=== PATIENT | female | born 1975 | race African-American/Black ===

== ENCOUNTER 2017-02-20 15:15 | Emergency (ER) | payer BC ==
--- NOTE | ~2017-02-20 | EKG ---
PATIENT: IRENE VÁZQUEZ UNIT #: [id number] Ventricular Rate: 86 BPM Atrial Rate: 86 BPM P-R Interval: 144 ms QRS Duration: 76 ms Q-T Interval: 398 ms QTC Calculation(Bezet): 476 ms P Grifton: 45 degrees Calculated R Grifton: 4 degrees Calculated T Grifton: 24 degrees Diagnosis Line: Normal sinus rhythm Diagnosis Line: Nonspecific T wave abnormality Diagnosis Line: Abnormal ECG Diagnosis Line: No previous ECGs available Diagnosis Line: Confirmed by PAPI CARL MD ([id number]) on Diagnosis Line: 02/20/2017 10:56:54 PM INTERPRETING MD: ALFREDO
[~2017-02-20 15:15] MED LIST: FIORINAL CAPSUL1 CAP PO; IBUPROFEN800 MG PO; KETOPROFEN PO
[2017-02-20 16:30] LABS: URINE SOURCE CLEAN CATCH
[2017-02-20 16:36] LABS: BASOPHIL# 0.1 X10e3 (0-0.3); BASOPHIL% 0.6 % (0-2.5); EOSINOPHIL# 0.2 X10e3 (0-0.7); EOSINOPHIL% 2.6 % (0.0-7.0); HEMATOCRIT 35.1 % (35.0-45.0); HEMOGLOBIN 10.8 gm/dL (12.0-16.0); LYMPHOCYTE% 32.9 % (17.0-45.0); MEAN CELL VOLUME 76.4 FL (83-96); MEAN CORPUSCULAR HEMOGLOBIN 23.6 PG (28-34); MEAN CORPUSCULAR HGB CONC 30.9 g/dL (30-36); MEAN PLATELET VOLUME 8.6 FL (6.5-11.5); MONOCYTE# 0.6 X10e3 (0-1.0); MONOCYTE% 6.9 % (3.0-12.0); NEUTROPHIL# 5.1 X10e3 (1.5-7.1); PLATELET COUNT 351 X10e3 (140-420); RED BLOOD COUNT 4.59 X10e (3.90-5.30); RED CELL DISTRIBUTION WIDTH 15.4 % (11.0-15.5); URINE APPEARANCE CLEAR; URINE BILIRUBIN NEG (NEG); URINE BLOOD NEG (NEG); URINE COLOR YELLOW; URINE GLUCOSE NEG (NEG); URINE KETONE NEG (NEG); URINE LEUKOCYTE ESTERASE NEG (NEG); URINE NITRATE NEG (NEG); URINE PROTEIN NEG (NEG); URINE SPECIFIC GRAVITY 1.019 (1.003-1.035)
[2017-02-20 16:39] LABS: DIFF IND NO
[2017-02-20 16:41] LABS: CULTURE INDICATED? NO
[2017-02-20 16:56] LABS: ALBUMIN SERUM 3.8 g/dL (3.5-5.0); ALKALINE PHOSPHATASE 59 U/L (32-92); ALT (SGPT) 15 U/L (10-40); AST (SGOT) 17 U/L (10-42); BILIRUBIN,TOTAL 0.7 mg/dL (0.2-2.0); BLOOD UREA NITROGEN 11 mg/dL (9-23); BUN/CREATININE RATIO 12.22; CARBON DIOXIDE 24 mmol/L (22-31); CHLORIDE 105 mmol/L (100-111); CREATININE SERUM 0.9 mg/dL (0.6-1.4); GLOM FILT RATE Estimated 90.8 mL/min (>60); GLUCOSE FASTING 87 mg/dL (70-110); LIPASE 21 U/L (22-51); PROTEIN TOTAL SERUM 7.7 g/dL (6.0-8.3); SODIUM 136 mmol/L (135-145)
[2017-02-20 16:57] LABS: BILIRUBIN, DIRECT <0.1 mg/dL (0.0-0.2); BILIRUBIN,INDIRECT 0.6 mg/dL (0.0-0.9)
== END 2017-02-20 19:14 | disposition home or self-care (01) ==
LOC: CED 15:15
DX: R10.9 Unspecified abdominal pain (principal); R30.0 Dysuria; J45.909 Unspecified asthma, uncomplicated; F17.200 Nicotine dependence, unspecified, uncomplicated; Z88.5 Allergy status to narcotic agent; Z91.040 Latex allergy status; Z91.030 Bee allergy status; Z79.899 Other long term (current) drug therapy
CPT/HCPCS: 36415; 80048; 80076; 81003; 83690; 84703; 85025; 93005; 99284

== ENCOUNTER 2017-04-05 06:59 | Emergency (ER) | payer BC ==
--- NOTE | ~2017-04-05 | US61 ---
[facility] A Service of [facility] & [facility] RADIOLOGY TEXT RESULTS PATIENT: IRENE VÁZQUEZ LOCATION: [facility] : [birth year] UNIT #: [id number] AGE: [address]: Micah Kebede MD SEX: F ORDER DR: [id number] [facility] [address] [place], [place] [address] [id number] E MR#: [id number] Acc #: [id number] NAME: IRENE VÁZQUEZ : 1975 SEX: F STUDY DATE/TIME: 04/05/2017 8:29 UNIT: [facility] ROOM: STUDY DESCRIPTION: US /Mat <14Wk / Attending Physician: Micah Kebede M.D. Ordering Physician: Micah Kebede M.D. Primary Care Physician: Taniya Luna M.D. MEDICAL IMAGING REPORT This report is preliminary unless electronic signature is present EXAM sonogram. HISTORY 41-year-old female with apparent positive test and pelvic pain since yesterday. Vaginal bleeding starting this morning. LMP 02/09/2017. FINDINGS Real-time examination was performed utilizing both transabdominal and endovaginal scanning. Patient terminated the procedure before it was complete due to pain. Examination demonstrates an enlarged uterus measuring 10.4 x 5.3 x 6.2 cm. Multiple uterine mass lesions are identified compatible with fibroadenomas, the largest seen exophytically off the posterior myometrium or posterior uterus measuring 3 x 4.8 x 3.9 cm. Endometrium unremarkable. No discernible gestational sac. The left ovary appeared normal measuring 2.9 x 1.9 x 2.8 cm. This contains a small cyst measuring about 1.4 cm. The right ovary was not visualized as the patient terminated the procedure early. No free fluid or adnexal masses identified. IMPRESSION 1. Limited pelvic sonogram as the patient terminated the procedure early due to pain. 2. No discernible IUP. Based on the patient's reported low quantitative HCG, differential would include early IUP versus ectopic versus failed IUP. Correlation with the patient's serial quantitative HCGs may be of benefit. Clearly no free fluid or adnexal mass is identified. 3. Enlarged uterus with a 4.8 cm exophytic lesion off the posterior aspect of the uterus compatible with a moderate sized fibroid. Dictated by... [facility] A Service of [facility] RADIOLOGY TEXT RESULTS PATIENT: IRENE VÁZQUEZ [id number] : [birth year] UNIT #: [id number] AGE: [address]: Micah Kebede MD SEX: F ORDER DR: Shivani Gomez M.D. THIS IS AN ELECTRONICALLY VERIFIED REPORT Shivani Gomez M.D. at 04/06/2017 7:28 AM POLLY/corey TD: 04/05/2017 13:59 JOB #: [id number] MEDICAL IMAGING REPORT Page 1 of 1 COPY
[2017-04-05 07:57] LABS: BASOPHIL% 0.6 % (0-2.5); EOSINOPHIL# 0.1 X10e3 (0-0.7); EOSINOPHIL% 2.1 % (0.0-7.0); HEMATOCRIT 33.1 % (35.0-45.0); HEMOGLOBIN 10.1 gm/dL (12.0-16.0); LYMPHOCYTE# 1.9 X10e3 (1.0-3.5); LYMPHOCYTE% 29.6 % (17.0-45.0); MEAN CELL VOLUME 75.4 FL (83-96); MEAN CORPUSCULAR HEMOGLOBIN 23.1 PG (28-34); MEAN CORPUSCULAR HGB CONC 30.6 g/dL (30-36); MEAN PLATELET VOLUME 7.8 FL (6.5-11.5); MONOCYTE# 0.5 X10e3 (0-1.0); MONOCYTE% 7.1 % (3.0-12.0); NEUTROPHIL% 60.6 % (40-75); PLATELET COUNT 304 X10e3 (140-420); RED BLOOD COUNT 4.38 X10e (3.90-5.30); RED CELL DISTRIBUTION WIDTH 15.4 % (11.0-15.5); WHITE BLOOD COUNT 6.6 X10e3 (4.0-10.5)
[2017-04-05 08:01] LABS: DIFF IND NO
== END 2017-04-05 09:55 | disposition home or self-care (01) ==
LOC: CED 06:59
PROVIDERS: Emergency Medicine
DX: O20.0 Threatened abortion (principal); O99.511 Diseases of the respiratory system complicating pregnancy, first trimester; J45.909 Unspecified asthma, uncomplicated; O99.331 Smoking (tobacco) complicating pregnancy, first trimester; F17.200 Nicotine dependence, unspecified, uncomplicated; Z98.890 Other specified postprocedural states; Z79.899 Other long term (current) drug therapy
CPT/HCPCS: 36415; 76801; 84702; 85025; 86900; 86901; 99284

== ENCOUNTER 2017-04-29 23:47 | Emergency (ER) | payer BC ==
--- NOTE | ~2017-04-29 | US61 ---
[facility] A Service of [facility] RADIOLOGY TEXT RESULTS PATIENT: IRENE VÁZQUEZ LOCATION: [facility] : [birth year] UNIT #: [id number] AGE: [address]: Micah Rai MD SEX: F ORDER DR: [id number] [facility] [address] [place], [place] [address] [id number] E MR#: [id number] Acc #: [id number] NAME: IRENE VÁZQUEZ : 1975 SEX: F STUDY DATE/TIME: 04/30/2017 04:45 UNIT: [facility] ROOM: STUDY DESCRIPTION: US /Mat <14Wk / Attending Physician: Quinn Rai M.D. Ordering Physician: Ed Doctor [id number] [facility] Primary Care Physician: Taniya Luna M.D. MEDICAL IMAGING REPORT This report is preliminary unless electronic signature is present EXAM Pelvic ultrasound 04/30/17 INDICATIONS Patient has pelvic pain increasing tonight without bleeding. Patient has a beta hCG value of 587. FINDINGS Transabdominal and transvaginal imaging is performed of the pelvis in multiple planes. Transvaginal imaging is performed for better evaluation of the uterus and adnexa. Uterus measures at least 10.4 x 6.2 x 9.5 cm. The stripe is poorly defined but is probably about 14 mm which is within normal limits as the patient is premenopausal. No intrauterine is seen. There is a fundal fibroid measuring up to 5.5 cm. There is a complex cystic lesion on the right ovary measuring 3.4 x 2.2 x 3.4 cm. This is probably simply a complex cyst rather than an ectopic. However, it has no intrauterine seen. Ectopic is not completely excluded. The reliability manager notes a heterogeneous area in the left adnexa. I am unsure if this is a real lesion or bowel or another structure based on the images provided. Left ovary is not definitively identified. There is no free fluid. IMPRESSION 1. Uterus is enlarged and it does contain a large fundal fibroid. 2. No intrauterine is seen. The stripe measures about 14 mm which is within normal limits in a premenopausal patient. 3. Mildly complicated cyst in the right ovary measuring 3.4 cm. This is presumably a benign hemorrhagic cyst. This does not have the typical appearance of an ectopic, although given the lack of intrauterine , ectopic not completely excluded. Dedicated DIETITIAN TEACHING followup is needed. [facility] A Service of [facility] RADIOLOGY TEXT RESULTS PATIENT: IRENE VÁZQUEZ LOCATION: [facility] : 71 UNIT #: [id number] AGE: [address]: Micah Rai MD SEX: F ORDER DR: 4. Sausage Mixer has questioned an area of irregular tissue in the left adnexa. This may have normal structure or bowel and is of questionable clinical significance. It is not definitely seen on the ultrasound 04/05/2017. The left ovary is not definitively identified on this exam. STAT * RESULT Dictated by... Berlin Mendoza Jr., M.D. THIS IS AN ELECTRONICALLY VERIFIED REPORT Berlin Mendoza Jr., M.D. at 04/30/2017 6:03 AM AFRICA/kaylie TD: 04/30/2017 05:31 JOB #: [id number] MEDICAL IMAGING REPORT Page 1 of 1 COPY
[2017-04-30 02:23] LABS: URINE SOURCE CLEAN CATCH
[2017-04-30 02:52] LABS: BASOPHIL# 0.1 X10e3 (0-0.3); BASOPHIL% 0.6 % (0-2.5); EOSINOPHIL# 0.2 X10e3 (0-0.7); HEMATOCRIT 30.5 % (35.0-45.0); HEMOGLOBIN 9.4 gm/dL (12.0-16.0); LYMPHOCYTE# 2.5 X10e3 (1.0-3.5); LYMPHOCYTE% 29.9 % (17.0-45.0); MEAN CELL VOLUME 75.6 FL (83-96); MEAN CORPUSCULAR HEMOGLOBIN 23.3 PG (28-34); MEAN CORPUSCULAR HGB CONC 30.8 g/dL (30-36); MONOCYTE# 0.6 X10e3 (0-1.0); MONOCYTE% 7.1 % (3.0-12.0); NEUTROPHIL% 60.4 % (40-75); PLATELET COUNT 325 X10e3 (140-420); RED BLOOD COUNT 4.03 X10e (3.90-5.30); RED CELL DISTRIBUTION WIDTH 15.8 % (11.0-15.5); WHITE BLOOD COUNT 8.2 X10e3 (4.0-10.5)
[2017-04-30 02:52] LABS: URINE APPEARANCE CLEAR; URINE BILIRUBIN NEG (NEG); URINE BLOOD NEG (NEG); URINE COLOR YELLOW; URINE GLUCOSE NEG (NEG); URINE KETONE NEG (NEG); URINE LEUKOCYTE ESTERASE NEG (NEG); URINE NITRATE NEG (NEG); URINE PROTEIN NEG (NEG); URINE SPECIFIC GRAVITY 1.023 (1.003-1.035)
[2017-04-30 02:53] LABS: DIFF IND NO
[2017-04-30 02:57] LABS: CULTURE INDICATED? NO
[2017-04-30 03:14] LABS: BUN/CREATININE RATIO 15.55; CALCIUM SERUM 8.9 mg/dL (8.4-10.2); CREATININE SERUM 0.9 mg/dL (0.6-1.4); GLOM FILT RATE Estimated 90.8 mL/min (>60); POTASSIUM 4.1 mmol/L (3.5-5.1)
== END 2017-04-30 08:40 ==
LOC: CED 23:47
PROVIDERS: Emergency Medicine
DX: O00.90 Unspecified ectopic pregnancy without intrauterine pregnancy (principal); F17.210 Nicotine dependence, cigarettes, uncomplicated; Z91.040 Latex allergy status; Z88.5 Allergy status to narcotic agent; Z91.030 Bee allergy status; Z79.899 Other long term (current) drug therapy
CPT/HCPCS: 36415; 76801; 80048; 81003; 84702; 84703; 85025; 99285; J2270; J2405